=== PATIENT | female | born 1960 | race Caucasian/White ===

== ENCOUNTER 2018-01-29 15:20 | Outpatient (CLI) | payer BC, SELFPAY ==
[2018-01-29 15:47] LABS: Abs Immature Grans 0.02 k/cumm (0.0-0.09); Absolute Eosinophil Count 0.01 k/cumm (0.0-0.7); Absolute Lymphocyte Count 0.61 k/cumm (1.2-3.4); Absolute Monocyte Count 0.49 k/cumm (0.11-0.7); Absolute Neutrophil Count 3.64 k/cumm (1.2-6.7); Eosinophils % 0.2; HCT 33.3 % (36.0-46.0); HGB 10.9 g/dL (12.0-15.5); Immature Grans % 0.4; Lymphocytes % 12.8; Mean Corp. HGB Concentration 32.7 g/dL (32.0-36.0); Mean Corpuscular Hemoglobin 28.3 pg (27.0-33.0); Mean Corpuscular Volume 86.5 fL (80-95); Mean Platelet Volume 9.3 fL (8.0-11.0); Monocytes % 10.3; Neutrophils % 76.3; Platelet Count 297 x1000/uL (130-400); RBC 3.85 m/cumm (4.00-5.20); RBC Distribution Width 19.8 % (11.7-14.6); White Blood Cell Count 4.77 k/cumm (4.4-10.8)
[2018-01-29 16:09] LABS: ALT 36 U/L (12-78); AST 25 U/L (15-37); Albumin 3.1 g/dL (3.4-5.0); Alkaline Phosphatase 75 U/L (46-116); Anion Gap 6.3 mmol/L (3-11); BUN 31 mg/dL (7-18); Bilirubin, Total 0.3 mg/dL (0.2-1.0); CO2 30.7 mmol/L (21.0-32.0); CREATININE 0.76 mg/dL (0.55-1.02); Chloride 98 mmol/L (98-107); FREE T4 0.95 ng/dL (0.76-1.46); Glucose 96 mg/dL (70-100); LDH 307 U/L (81-234); Sodium 135 mmol/L (136-145); TSH 2.59 uIU/mL (0.358-3.74); Total Protein 6.6 g/dL (6.4-8.2)
[2018-01-29 16:14] LABS: Anisocytosis 1+; Polychromasia Present
== END 2018-01-29 15:40 ==
PROVIDERS: Visit Provider Internal Medicine Hematology & Oncology
DX: C34.12 Malignant neoplasm of upper lobe, left bronchus or lung (principal)
CPT/HCPCS: 36415; 80053; 83615; 84439; 84443; 85025